=== PATIENT | female | born 1970 | race Two or more races ===

== ENCOUNTER → 2020-11-05 | Outpatient (CLI) | payer OTHER | END | disposition home or self-care (01) | LOC: PPH VACUNA 08:00 | PROVIDERS: ATTEND Emergency Medicine Pediatric Emergency Medicine | DX: Z23 Encounter for immunization (principal) ==

== ENCOUNTER 2020-12-17 13:46 | Outpatient (CLI) | payer OTHER | END 2020-12-17 15:41 | disposition home or self-care (01) | LOC: MRI 13:46 → RAD 13:46 → MRI 15:41 | PROVIDERS: ATTEND Internal Medicine Pulmonary Disease | DX: M43.14 Spondylolisthesis, thoracic region (principal); M51.24 Other intervertebral disc displacement, thoracic region; M50.21 Other cervical disc displacement, high cervical region | CPT/HCPCS: 72142; 72147 ==

== ENCOUNTER 2020-12-18 07:30 | Outpatient (CLI) | payer OTHER | END 2020-12-18 11:03 | disposition home or self-care (01) | LOC: SONOGRAMA 07:30 | PROVIDERS: ATTEND Internal Medicine Pulmonary Disease | DX: M75.120 Complete rotator cuff tear or rupture of unspecified shoulder, not specified as traumatic (principal) ==

== ENCOUNTER 2022-03-31 09:10 | Outpatient (CLI) | payer OTHER | END 2022-03-31 09:20 | disposition home or self-care (01) | LOC: RAD 09:10 | DX: J45.30 Mild persistent asthma, uncomplicated (principal) ==